=== PATIENT | female | born 1945 | race Caucasian/White ===

== ENCOUNTER 2016-06-07 12:24 | Inpatient (IN) | payer MEDICARE ==
[~2016-06-07 12:24] MED LIST: ADVAIR 500-501 EACH INH; AMBIEN10 MG PO; CELEXA20 MG PO; DOK100 MG PO; FOLIC ACID1 MG PO; HYDROCODON-ACE1 EAC6 PO; LEVAQUIN500 MG PO; LORATADINE10 MG PO; METHOTREXATE2.5 MG PO; NEURONTIN300 MG PO; NORVASC5 MG PO; OMEPRAZOLE40 MG PO; PLAQUENIL200 MG PO; PREDNISONE10 MG PO; SPIRIVA18 MCG INH; VENTOLIN HFA8 GM INH; ZANAFLEX4 MG PO
[2016-06-07 12:56] LABS: BASO # 0.1 10_X3_uL (0.0-0.1); BASO % 0.3 % (0.1-1.2); EOS % 0.1 % (0.7-5.8); GRAN # 12.8 10_X3_uL (1.6-6.1); HEMATOCRIT 36.3 % (34-45); HEMOGLOBIN 11.5 g/dL (11.2-15.7); LYMPH # 1.2 10_X3_uL (1.2-3.7); LYMPH % 7.9 % (19.3-51.7); MEAN CORPUSCULAR HEMOGLOBIN 31.9 pg (27.0-33.0); MEAN CORPUSCULAR HGB CONC 31.7 g/dL (32.0-36.0); MEAN CORPUSCULAR VOLUME 100.8 fL (79-95); MEAN PLATELET VOLUME 9.5 fl (7.5-11.5); MONO # 0.7 10_X3_uL (0.2-0.9); MONO % 4.7 % (4.7-12.5); PLATELET COUNT 186 x10_3/uL (182-369); RED CELL DISTRIBUTION WIDTH 16.3 % (11.7-14.4); WHITE BLOOD COUNT 14.7 x10_3/uL (4.0-10.0)
[2016-06-07 13:18] LABS: PARTIAL THROMBOPLASTIN TIME 26.5 SECONDS (21.3-29.3); PROTHROMBIN TIME (PATIENT) 10.6 SECONDS (9.9-11.1)
[2016-06-07 13:19] LABS: ALBUMIN 3.9 gm/dL (3.4-5.0); ALKALINE PHOSPHATASE 83 U/L (50-136); ALT/SGPT 13 U/L (3.5-33.9); AST/SGOT 20 U/L (7.04-26.96); BILIRUBIN,TOTAL 0.34 mg/dL (0.0-1.0); BLOOD UREA NITROGEN 8 mg/dL (7-18); CALCIUM 8.5 mg/dL (8.7-10.7); CARBON DIOXIDE 26 mmol/L (21-32); CREATININE 0.5 mg/dL (0.6-1.3); GLUCOSE,RANDOM 108 mg/dL (70-99); POTASSIUM 4.1 mmol/L (3.5-5.1); SODIUM 139 mmol/L (136-145); TOTAL PROTEIN 6.8 gm/dL (6.4-8.2)
[2016-06-07 22:17] LABS: ARTERIAL BLD GAS O2 SATURATION 97.4 % (94-98); ARTERIAL BLOOD GAS BASE EXCESS 5.5 mmol/L (-2.0-3.0); ARTERIAL BLOOD GAS HCO3 30.3 mmol/L (22-26); ARTERIAL BLOOD GAS PCO2 47.3 mmHg (32-45); ARTERIAL BLOOD GAS pH 7.42 (7.35-7.45)
[2016-06-08 06:35] LABS: HEMATOCRIT 36.1 % (34-45); HEMOGLOBIN 11.4 g/dL (11.2-15.7); MEAN CORPUSCULAR HEMOGLOBIN 31.8 pg (27.0-33.0); MEAN CORPUSCULAR HGB CONC 31.6 g/dL (32.0-36.0); MEAN CORPUSCULAR VOLUME 100.8 fL (79-95); RED BLOOD COUNT 3.58 x10_6/uL (3.9-5.2); RED CELL DISTRIBUTION WIDTH 16.1 % (11.7-14.4); WHITE BLOOD COUNT 7.4 x10_3/uL (4.0-10.0)
[2016-06-08 06:48] LABS: BLOOD UREA NITROGEN 12 mg/dL (7-18); CALCIUM 8.8 mg/dL (8.7-10.7); CARBON DIOXIDE 29 mmol/L (21-32); CREATININE 0.5 mg/dL (0.6-1.3); GLUCOSE,RANDOM 150 mg/dL (70-99); POTASSIUM 4.1 mmol/L (3.5-5.1); SODIUM 146 mmol/L (136-145)
[2016-06-09 06:51] LABS: GRAN # 8.6 10_X3_uL (1.6-6.1); GRAN % 92.1 % (34.0-71.1); HEMATOCRIT 34.3 % (34-45); HEMOGLOBIN 10.9 g/dL (11.2-15.7); LYMPH # 0.5 10_X3_uL (1.2-3.7); LYMPH % 5.3 % (19.3-51.7); MEAN CORPUSCULAR HGB CONC 31.8 g/dL (32.0-36.0); MEAN CORPUSCULAR VOLUME 100.6 fL (79-95); MEAN PLATELET VOLUME 9.9 fl (7.5-11.5); MONO # 0.2 10_X3_uL (0.2-0.9); MONO % 2.6 % (4.7-12.5); PLATELET COUNT 241 x10_3/uL (182-369); RED BLOOD COUNT 3.41 x10_6/uL (3.9-5.2); RED CELL DISTRIBUTION WIDTH 16.1 % (11.7-14.4); WHITE BLOOD COUNT 9.3 x10_3/uL (4.0-10.0)
[2016-06-09 07:02] LABS: ALBUMIN 3.5 gm/dL (3.4-5.0); ALKALINE PHOSPHATASE 72 U/L (50-136); ALT/SGPT 12 U/L (3.5-33.9); AST/SGOT 14 U/L (7.04-26.96); CARBON DIOXIDE 29 mmol/L (21-32); CREATININE 0.5 mg/dL (0.6-1.3); GLUCOSE,RANDOM 179 mg/dL (70-99); POTASSIUM 3.6 mmol/L (3.5-5.1); SODIUM 146 mmol/L (136-145); TOTAL PROTEIN 6.4 gm/dL (6.4-8.2)
[2016-06-09 07:15] LABS: BILIRUBIN,TOTAL < 0.15 mg/dL (0.0-1.0); BLOOD UREA NITROGEN 21 mg/dL (7-18)
[2016-06-10 06:29] LABS: GRAN % 91.1 % (34.0-71.1); HEMATOCRIT 33.4 % (34-45); HEMOGLOBIN 10.4 g/dL (11.2-15.7); LYMPH # 0.4 10_X3_uL (1.2-3.7); LYMPH % 4.5 % (19.3-51.7); MEAN CORPUSCULAR HEMOGLOBIN 31.4 pg (27.0-33.0); MEAN CORPUSCULAR HGB CONC 31.1 g/dL (32.0-36.0); MEAN CORPUSCULAR VOLUME 100.9 fL (79-95); MONO # 0.4 10_X3_uL (0.2-0.9); MONO % 4.4 % (4.7-12.5); PLATELET COUNT 232 x10_3/uL (182-369); RED BLOOD COUNT 3.31 x10_6/uL (3.9-5.2); RED CELL DISTRIBUTION WIDTH 16.2 % (11.7-14.4); WHITE BLOOD COUNT 8.8 x10_3/uL (4.0-10.0)
[2016-06-10 06:31] LABS: ALBUMIN 3.4 gm/dL (3.4-5.0); ALKALINE PHOSPHATASE 84 U/L (50-136); ALT/SGPT 13 U/L (3.5-33.9); AST/SGOT 13 U/L (7.04-26.96); BILIRUBIN,TOTAL 0.21 mg/dL (0.0-1.0); BLOOD UREA NITROGEN 21 mg/dL (7-18); CALCIUM 8.8 mg/dL (8.7-10.7); CARBON DIOXIDE 30 mmol/L (21-32); CREATININE 0.5 mg/dL (0.6-1.3); GLUCOSE,RANDOM 155 mg/dL (70-99); POTASSIUM 3.8 mmol/L (3.5-5.1); SODIUM 144 mmol/L (136-145); TOTAL PROTEIN 6.1 gm/dL (6.4-8.2)
[2016-06-11 07:08] LABS: BASO % 0.1 % (0.1-1.2); GRAN # 5.9 10_X3_uL (1.6-6.1); GRAN % 84.7 % (34.0-71.1); HEMATOCRIT 33.8 % (34-45); HEMOGLOBIN 10.7 g/dL (11.2-15.7); LYMPH # 0.3 10_X3_uL (1.2-3.7); LYMPH % 4.7 % (19.3-51.7); MEAN CORPUSCULAR HEMOGLOBIN 31.8 pg (27.0-33.0); MEAN CORPUSCULAR HGB CONC 31.7 g/dL (32.0-36.0); MEAN CORPUSCULAR VOLUME 100.3 fL (79-95); MEAN PLATELET VOLUME 9.6 fl (7.5-11.5); MONO # 0.7 10_X3_uL (0.2-0.9); MONO % 10.5 % (4.7-12.5); PLATELET COUNT 191 x10_3/uL (182-369); RED BLOOD COUNT 3.37 x10_6/uL (3.9-5.2); RED CELL DISTRIBUTION WIDTH 15.8 % (11.7-14.4)
[2016-06-11 07:34] LABS: BLOOD UREA NITROGEN 18 mg/dL (7-18); CALCIUM 8.7 mg/dL (8.7-10.7); CARBON DIOXIDE 30 mmol/L (21-32); CREATININE < 0.5 mg/dL (0.6-1.3); GLUCOSE,RANDOM 151 mg/dL (70-99); POTASSIUM 3.6 mmol/L (3.5-5.1); SODIUM 142 mmol/L (136-145)
[2016-06-12 07:09] LABS: HEMATOCRIT 34.5 % (34-45); HEMOGLOBIN 11.1 g/dL (11.2-15.7); MEAN CORPUSCULAR HEMOGLOBIN 31.8 pg (27.0-33.0); MEAN CORPUSCULAR HGB CONC 32.2 g/dL (32.0-36.0); MEAN CORPUSCULAR VOLUME 98.9 fL (79-95); MEAN PLATELET VOLUME 9.3 fl (7.5-11.5); RED BLOOD COUNT 3.49 x10_6/uL (3.9-5.2); RED CELL DISTRIBUTION WIDTH 15.8 % (11.7-14.4); WHITE BLOOD COUNT 6.8 x10_3/uL (4.0-10.0)
[2016-06-12 07:48] LABS: BLOOD UREA NITROGEN 18 mg/dL (7-18); CALCIUM 8.5 mg/dL (8.7-10.7); CARBON DIOXIDE 29 mmol/L (21-32); CREATININE < 0.5 mg/dL (0.6-1.3); GLUCOSE,RANDOM 150 mg/dL (70-99); POTASSIUM 3.6 mmol/L (3.5-5.1); SODIUM 144 mmol/L (136-145)
== END 2016-06-12 11:10 | disposition home or self-care (01) | DRG 191 ==
LOC: ER 12:24 → MS 14:32 → UNDODEPER 06-11 14:50 → MS 06-12 11:10
PROVIDERS: Emergency Medicine; ADMIT Family Medicine
DX: J44.0 Chronic obstructive pulmonary disease with (acute) lower respiratory infection (principal); R04.2 Hemoptysis; J20.9 Acute bronchitis, unspecified; J44.1 Chronic obstructive pulmonary disease with (acute) exacerbation; J45.909 Unspecified asthma, uncomplicated; R91.8 Other nonspecific abnormal finding of lung field; R41.0 Disorientation, unspecified; F41.9 Anxiety disorder, unspecified; I10 Essential (primary) hypertension; R50.9 Fever, unspecified; F32.9 Major depressive disorder, single episode, unspecified; Z79.891 Long term (current) use of opiate analgesic; Z79.899 Other long term (current) drug therapy; Z83.3 Family history of diabetes mellitus; Z80.9 Family history of malignant neoplasm, unspecified; Z82.49 Family history of ischemic heart disease and other diseases of the circulatory system; Z99.81 Dependence on supplemental oxygen
CPT/HCPCS: 36415; 36600; 71010; 71250; 80048; 80053; 82550; 82553; 82803; 83605; 85025; 85610; 85730; 87040; 87070; 87205; 87400; 87449; 93005; 94640; 94664; 96365; 96367; 96375; 99070; 99284; 99285-25; J2920; J2930; J7050

== ENCOUNTER 2016-06-07 12:24 | Emergency (ER) | payer MEDICARE | END 2016-06-07 14:32 | disposition other institution (70) | LOC: ER 12:24 | DX: J44.0 Chronic obstructive pulmonary disease with (acute) lower respiratory infection (principal); J20.9 Acute bronchitis, unspecified; J44.1 Chronic obstructive pulmonary disease with (acute) exacerbation; R00.0 Tachycardia, unspecified; I10 Essential (primary) hypertension; G89.29 Other chronic pain; F32.9 Major depressive disorder, single episode, unspecified; Z99.81 Dependence on supplemental oxygen; D84.9 Immunodeficiency, unspecified; Z79.899 Other long term (current) drug therapy | CPT/HCPCS: 99284; 99285-25 ==